=== PATIENT | female | born 1990 ===

== ENCOUNTER 2017-01-19 16:31 | Emergency (ER) | payer MEDICAID, OTHER ==
[2017-01-19 16:31] VITALS: BMI 32.7
[2017-01-19] MEDS ORDERED: Sodium Chloride 0.9% 1,000 ML IV ONE (17:12)
[2017-01-19 17:34] LABS: BASO # 0.1 K/uL (0.0-0.2); BASO % 1.3 % (0.0-2.0); EOS # 0.1 K/uL (0.0-0.7); EOS % 1.2 % (0.0-4.0); HEMATOCRIT 43.4 % (34.0-47.0); LYMPH # 1.8 K/uL (1.0-4.3); LYMPH % 37.7 % (20.0-40.0); MEAN CORPUSCULAR HEMOGLOBIN 31.2 pg (27.0-31.0); MEAN CORPUSCULAR HGB CONC 33.9 g/dL (33.0-37.0); MEAN PLATELET VOLUME 11.4 fL (7.2-11.7); MONO # 0.5 K/uL (0.0-0.8); MONO % 10.9 % (0.0-10.0); NRBC % 0.1 % (0.0-2.0); RED CELL DISTRIBUTION WIDTH 12.4 % (11.5-14.5)
--- NOTE | 2017-01-19 17:36 | C.PDOC ---
History Of Present Illness 26 yr old female presents to the ER with complaints of abdominal pain for the past 3 weeks, associated with vomiting and diarrhea. Patient denies fever, chills, chest pain, SOB, dysuria, hematuria, incontinence, weakness or numbness. 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 Constitutional: Negative for: Fever, Chills Cardiovascular: Negative for: Chest Pain Respiratory: Negative for: Shortness of Breath Gastrointestinal: Positive for: Vomiting, Abdominal Pain, Diarrhea Genitourinary: Negative for: Dysuria, Incontinence, Hematuria Neurological: Negative for: Weakness, Numbness Physical Exam - Physical Exam Appears: Well, Non-toxic, No Acute Distress Skin: Normal Color, Warm, Dry, No Rash Head: Atraumatic, Normacephalic Eye(s): bilateral: Normal Inspection, PERRL, EOMI Oral Mucosa: Moist Throat: Normal, No Erythema, No Exudate, No Drooling Neck: Normal, Normal ROM, Supple Chest: Symmetrical, No Tenderness Cardiovascular: Rhythm Regular, No Friction Rub, No Murmur Respiratory: Normal Breath Sounds, No Rales, No Rhonchi, No Wheezing Gastrointestinal/Abdominal: Normal Exam, Soft, No Tenderness, No Guarding, No Rebound, No Ascites Back: Normal Inspection, No CVA Tenderness Extremity: Normal ROM, No Swelling Neurological/Psych: Oriented x3, Normal Speech ED Course And Treatment - Laboratory Results Result Diagrams: 01/19/17 17:31 01/19/17 17:31 Lab Interpretation: Normal Urine POC: Negative O2 Sat by Pulse Oximetry: 98 Pulse Ox Interpretation: Normal Progress Note: Treated with IVF NSS and zofran IV. On re-evaluation abdomen soft non-tender Reassessment Condition: Improved Medical Decision Making Medical Decision Making: PLAN: * CBC * HCG * Urinalysis * Zofran IVP * Sodium Chloride IV Disposition Counseled Patient/Family Regarding: Studies Performed, Diagnosis, Need For Followup - Disposition Referrals: 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 - Scribe Statement The provider has reviewed the documentation as recorded by the Scribe Diane Dean All medical record entries made by the Scribe were at my direction and personally dictated by me. I have reviewed the chart and agree that the record accurately reflects my personal performance of the history, physical exam, medical decision making, and the department course for this patient. I have also personally directed, reviewed, and agree with the discharge instructions and disposition.
[2017-01-19 17:39] LABS: MEAN CELL VOLUME 91.9 fL (81.0-99.0); WHITE BLOOD COUNT 4.9 K/uL (4.8-10.8)
[2017-01-19 17:42] LABS: CHLORIDE 98 mmol/L (98-107); RBC URINE 4361 /hpf (0-3); URINE BACTERIA OCC (<OCC); URINE BILIRUBIN NEGATIVE (NEGATIVE); URINE BLOOD 2+ (NEGATIVE); URINE GLUCOSE (UA) NORMAL (Normal); URINE KETONE NEGATIVE (NEGATIVE); URINE LEUKOCYTE ESTERASE NEG Leu/uL (Negative); URINE PROTEIN 2+ mg/dL (NEGATIVE); URINE UROBILINOGEN NORMAL mg/dL (0.2-1.0); WBC URINE 5 /hpf (0-5)
[2017-01-19 17:43] LABS: POTASSIUM 5.1 mmol/L (3.6-5.2); SODIUM 140 mmol/L (132-148)
[2017-01-19 17:45] LABS: ALB/GLOB RATIO 1.2 (1.0-2.1); ALKALINE PHOSPHATASE 52 U/L (38-126); ALT/SGPT 28 U/L (9-52); AST/SGOT 30 U/L (14-36); BILIRUBIN,TOTAL 0.7 mg/dL (0.2-1.3); BLOOD UREA NITROGEN 11 mg/dL (7-17); CARBON DIOXIDE 29 mmol/L (22-30); GFR AFRICAN-AMERICAN > 60; TOTAL PROTEIN 8.3 g/dL (6.3-8.3)
[2017-01-19 17:46] LABS: CALCIUM 8.7 mg/dl (8.6-10.4); GLUCOSE,RANDOM 99 mg/dL (65-105)
[2017-01-19 17:49] LABS: URINE COLOR RED (YELLOW)
[2017-01-19 19:09] VITALS: BP 132/81; PULSE 77; RESP 18; TEMP 98; O2SAT 96
== END 2017-01-19 19:09 | disposition home or self-care (01) ==
LOC: C.ER 16:31
DX: R11.2 Nausea with vomiting, unspecified (principal); R19.7 Diarrhea, unspecified
CPT/HCPCS: 80053; 81001; 83690; 84703; 85025; 96374; 99285; J2405; J7040

== ENCOUNTER 2017-02-27 14:05 | Emergency (ER) | payer OTHER ==
[2017-02-27 14:05] VITALS: BMI 32.7
[2017-02-27 14:16] VITALS: O2SAT 100
--- NOTE | 2017-02-27 14:52 | C.PDOC ---
History Of Present Illness 26 year old patient presents to the ED complaining of lower abdominal pain and cramping with some vaginal spotting that began yesterday. She states the blood is not flowing, but she notes it when she goes to the bathroom. Patient states she has an irregular menstrual cycle. Her last menstrual cycle was 01/17/17. She did not have one this month so far. She took an at home test today which was positive. Patient has been once before, has one child, and no miscarriages. Patient denies fever, nausea, vomiting, diarrhea, back pain or urinary symptoms. Time Seen by Provider: 02/27/17 14:20 Chief Complaint (Nursing): Female Genitourinary History Per: Patient History/Exam Limitations: no limitations Onset/Duration Of Symptoms: Days (yesterday) Current Symptoms Are (Timing): Still Present Context: Other Severity: Mild Pain Scale Rating Of: 3 Location Of Pain/Discomfort: Suprapubic Radiation Of Pain To:: None Quality Of Discomfort: Cramping, "Pain" Associated Symptoms: Other (vaginal spotting) Exacerbating Factors: None Alleviating Factors: None Last Bowel Movement: Today Recent travel outside of the [place]: No Abnormal Vaginal Bleeding: Yes Last Menstral Period: 01/17/17 : 2 Para: 1 Miscarriage: 0 Past Medical History Reviewed: Historical Data, Nursing Documentation, Vital Signs Vital Signs: Last Vital Signs Temp 98.8 F 02/27/17 14:13 Pulse 79 02/27/17 14:13 Resp 20 02/27/17 14:13 BP 134/86 02/27/17 14:13 Pulse Ox 100 02/27/17 16:03 - [facility] Procedures LOW CERVICAL (07/15/14) 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 Constitutional: Negative for: Fever Gastrointestinal: Positive for: Abdominal Pain (lower). Negative for: Nausea, Vomiting, Diarrhea Genitourinary: Positive for: Vaginal Bleeding (spotting). Negative for: Dysuria Physical Exam - Physical Exam Appears: Non-toxic, No Acute Distress Skin: Warm, Dry Head: Atraumatic, Normacephalic Neck: Normal ROM, Supple Chest: Symmetrical Cardiovascular: Rhythm Regular Respiratory: Normal Breath Sounds, No Rales, No Rhonchi, No Wheezing Gastrointestinal/Abdominal: Soft, Tenderness (mild suprapubic), No Guarding, No Rebound Back: Normal Inspection, No CVA Tenderness Extremity: Normal ROM Neurological/Psych: Oriented x3 Gait: Steady ED Course And Treatment - Laboratory Results Result Diagrams: 02/27/17 15:04 02/27/17 15:04 Interpretation Of Abnormal: BHCG 4771.1 Urine POC: Positive O2 Sat by Pulse Oximetry: 100 (room air) Pulse Ox Interpretation: Normal - CT Scan/US Pelvic US Other Rad Studies (CT/US): Read By Radiologist (Eusebio Figueroa MD), Radiology Report Reviewed CT/US Interpretation: Pelvic ultrasound. History: . Vaginal bleeding and pain. Comparison: None available. Technique: Real-time sonography was performed through the pelvis utilizing transabdominal and transvaginal techniques. Findings: LMP of 01/17/2017. Gestational age by LMP of 5 weeks and 6 days. Uterus: 9.4 x 4.9 x 6.1 centimeters. Heterogeneous echotexture. Retroverted. Cervix measures 3.6 centimeters. Uterine fibroid lesion seen anteriorly measuring 2.4 x 1.8 x 1.9 centimeters. Hypoechoic foci within the uterus suggestive for intrauterine gestational sac measuring 0.9 centimeters, too small to adequately date. Yolk sac identified measuring 3.3 millimeters. No pole or heart rate identified. No free fluid in the pelvic cul-de- sac. Right ovary: 6.3 x 4.9 x 5.2 centimeters. Normal flow. Hypoechoic cyst measuring 5.1 x 3.8 x 4.5 centimeters. Cyst appears to contain a septation and or peripheral mural nodule. Left ovary: Only seen on transabdominal view. 2.3 x 1.4 x 2.2 centimeters. Normal flow. Impression: LMP of 01/17/2017. Gestational age by LMP of 5 weeks and 6 days. Suggestion of a hypoechoic foci seen within the uterus suggestive for an intrauterine , too small to adequately date. Intrauterine gestational sac and yolk sac identified. No pole or heart rate identified. This is likely related to an early intrauterine . Continued interval followup is recommended to exclude additional etiologies including possible missed . 2.4 centimeter fibroid lesion within the anterior uterus. 5.1 centimeter right ovarian cyst as described above. Limited 1st trimester ultrasound for viability purposes only. Continued interval followup with serial ultrasound, serial HCG levels, and gynecological consultation would be helpful if clinically indicated. Please note beta HCG level was not documented by the technologist. Clinical correlation. Reevaluation Time: 16:23 Reassessment Condition: Unchanged Medical Decision Making Medical Decision Making: Plan: * Labs * Pelvic US Disposition Counseled Patient/Family Regarding: Studies Performed, Diagnosis, Need For Followup - Disposition Referrals: [facility] [Outside] Disposition: HOME/ ROUTINE Disposition Time: 16:32 Condition: STABLE Instructions: Threatened Miscarriage (ED) Print Language: LUXEMBOURGISH - Clinical Impression Clinical Impression: Threatened in early - Scribe Statement The provider has reviewed the documentation as recorded by the Scribe Usha Vega Provider Attestation: All medical record entries made by the Scribe were at my direction and personally dictated by me. I have reviewed the chart and agree that the record accurately reflects my personal performance of the history, physical exam, medical decision making, and the department course for this patient. I have also personally directed, reviewed, and agree with the discharge instructions and disposition.
[2017-02-27 14:54] LABS: URINE BILIRUBIN NEGATIVE (NEGATIVE); URINE BLOOD 1+ (NEGATIVE); URINE COLOR Straw (YELLOW); URINE GLUCOSE (UA) NORMAL (Normal); URINE KETONE NEGATIVE (NEGATIVE); URINE LEUKOCYTE ESTERASE NEG Leu/uL (Negative); URINE PROTEIN NEGATIVE (NEGATIVE); URINE UROBILINOGEN NORMAL mg/dL (0.2-1.0); WBC URINE 1 /hpf (0-5)
[2017-02-27 15:15] LABS: BASO # 0.1 K/uL (0.0-0.2); BASO % 0.9 % (0.0-2.0); EOS # 0.1 K/uL (0.0-0.7); EOS % 2.3 % (0.0-4.0); HEMATOCRIT 44.3 % (34.0-47.0); LYMPH # 2.4 K/uL (1.0-4.3); LYMPH % 40.8 % (20.0-40.0); MEAN CORPUSCULAR HEMOGLOBIN 30.8 pg (27.0-31.0); MEAN CORPUSCULAR HGB CONC 33.1 g/dL (33.0-37.0); MEAN PLATELET VOLUME 11.6 fL (7.2-11.7); MONO # 0.4 K/uL (0.0-0.8); NRBC % 0.2 % (0.0-2.0); RED CELL DISTRIBUTION WIDTH 12.4 % (11.5-14.5); WHITE BLOOD COUNT 5.8 K/uL (4.8-10.8)
[2017-02-27 15:16] LABS: CHLORIDE 99 mmol/L (98-107); POTASSIUM 3.8 mmol/L (3.6-5.2); SODIUM 138 mmol/L (132-148)
[2017-02-27 15:18] LABS: ALB/GLOB RATIO 1.3 (1.0-2.1); ALKALINE PHOSPHATASE 55 U/L (38-126); AST/SGOT 26 U/L (14-36); BILIRUBIN,TOTAL 0.7 mg/dL (0.2-1.3); CARBON DIOXIDE 26 mmol/L (22-30); GFR AFRICAN-AMERICAN > 60; TOTAL PROTEIN 8.1 g/dL (6.3-8.3)
[2017-02-27 15:19] LABS: ALT/SGPT 32 U/L (9-52); BLOOD UREA NITROGEN 7 mg/dL (7-17); CALCIUM 8.8 mg/dl (8.6-10.4); GLUCOSE,RANDOM 90 mg/dL (65-105)
--- NOTE | 2017-02-27 15:58 | US ---
Pelvic ultrasound History: . Vaginal bleeding and pain. Comparison: None available. Technique: Real-time sonography was performed through the pelvis utilizing transabdominal and transvaginal techniques. Findings: LMP of 01/17/2017. Gestational age by LMP of 5 weeks and 6 days. Uterus: 9.4 x 4.9 x 6.1 centimeters. Heterogeneous echotexture. Retroverted. Cervix measures 3.6 centimeters. Uterine fibroid lesion seen anteriorly measuring 2.4 x 1.8 x 1.9 centimeters. Hypoechoic foci within the uterus suggestive for intrauterine gestational sac measuring 0.9 centimeters, too small to adequately date. Yolk sac identified measuring 3.3 millimeters. No pole or heart rate identified. No free fluid in the pelvic cul-de-sac. Right ovary: 6.3 x 4.9 x 5.2 centimeters. Normal flow. Hypoechoic cyst measuring 5.1 x 3.8 x 4.5 centimeters. Cyst appears to contain a septation and or peripheral mural nodule. Left ovary: Only seen on transabdominal view. 2.3 x 1.4 x 2.2 centimeters. Normal flow. Impression: LMP of 01/17/2017. Gestational age by LMP of 5 weeks and 6 days. Suggestion of a hypoechoic foci seen within the uterus suggestive for an intrauterine , too small to adequately date. Intrauterine gestational sac and yolk sac identified. No pole or heart rate identified. This is likely related to an early intrauterine . Continued interval followup is recommended to exclude additional etiologies including possible missed . 2.4 centimeter fibroid lesion within the anterior uterus. 5.1 centimeter right ovarian cyst as described above. Limited 1st trimester ultrasound for viability purposes only. Continued interval followup with serial ultrasound, serial HCG levels, and gynecological consultation would be helpful if clinically indicated. Please note beta HCG level was not documented by the technologist. Clinical correlation.
[2017-02-27 17:10] VITALS: BP 128/70; PULSE 90; RESP 18; TEMP 97.6
== END 2017-02-27 17:10 | disposition home or self-care (01) ==
LOC: C.ER 14:05
DX: O20.0 Threatened abortion (principal); Z3A.00 Weeks of gestation of pregnancy not specified

== ENCOUNTER 2017-03-29 09:48 | Emergency (ER) | payer OTHER ==
[2017-03-29 09:48] VITALS: BMI 32.7
[2017-03-29 09:56] VITALS: BP 125/82; PULSE 70; RESP 20; TEMP 98.7; O2SAT 99
--- NOTE | 2017-03-29 11:03 | C.PDOC ---
History Of Present Illness 26 year old patient presents to the ED complaining of right eye irritation and redness since yesterday. Patient denies any discharge, vision change, foreign body sensation, wearing contact lens, or fever. Time Seen by Provider: 03/29/17 10:10 Chief Complaint (Nursing): Eye Problem History Per: Patient History/Exam Limitations: no limitations Onset/Duration Of Symptoms: Days (yesterday) Current Symptoms Are (Timing): Still Present Injury To Eye?: No Severity: Mild Pain Scale Rating Of: 3 Quality: Other (irritation) Associated Symptoms: Other (irritation, redness) Recent travel outside of the [place]: No Past Medical History Reviewed: Historical Data, Nursing Documentation, Vital Signs Vital Signs: Last Vital Signs Temp 98.7 F 03/29/17 09:55 Pulse 70 03/29/17 09:55 Resp 20 03/29/17 09:55 BP 125/82 03/29/17 09:55 Pulse Ox 99 03/29/17 13:16 - [facility] Procedures LOW CERVICAL (07/15/14) 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 Constitutional: Negative for: Fever Eyes: Positive for: Redness (right). Negative for: Vision Change, Other ( discharge, foreign body sensation) Physical Exam - Physical Exam Appears: Non-toxic, No Acute Distress Skin: Warm, Dry Head: Atraumatic, Normacephalic Eye(s): bilateral: Normal Inspection, PERRL, EOMI, right: Other (sclera: (+) injection (-)foreign body (-)discharge) Ear(s): Bilateral: Normal Nose: Normal Oral Mucosa: Moist Throat: Normal Neck: Normal ROM, Supple Chest: Symmetrical Cardiovascular: Rhythm Regular Respiratory: Normal Breath Sounds, No Rales, No Rhonchi, No Wheezing Extremity: Bilateral: Atraumatic Neurological/Psych: Oriented x3 Gait: Steady ED Course And Treatment O2 Sat by Pulse Oximetry: 99 (room air) Pulse Ox Interpretation: Normal Disposition - Disposition Referrals: [facility] Rejose, [Non-Staff] - Disposition: HOME/ ROUTINE Disposition Time: 10:15 Condition: GOOD Additional Instructions: Thank you for letting us take care of you today. Your provider was Dr. Whitman. You were treated for an eye infection. The emergency medical care you received today was directed at your acute symptoms. If you were prescribed any medication, please fill it and take as directed. It may take several days for your symptoms to resolve. Return to the Emergency Department if your symptoms worsen, do not improve, or if you have any other problems. Please contact your doctor or call one of the physicians/clinics you have been referred to that are listed on the Patient Visit Information form that is included in your discharge packet. Bring any paperwork you were given at discharge with you along with any medications you are taking to your follow up visit. Our treatment cannot replace ongoing medical care by a primary care provider (PCP) outside of the emergency department. Thank you for allowing the [facility] team to be part of your care today. Follow up with your doctor in 2-3 days for re-evaluation. Prescriptions: Polymyxin/Trimethoprim Sulfate [Polytrim Ophth Soln] 1 drop OU Q6 #1 bottle Instructions: Conjunctivitis (ED) Forms: Work Excuse - Clinical Impression Clinical Impression: Conjunctivitis - Scribe Statement The provider has reviewed the documentation as recorded by the Yueibrobert Vega Provider Attestation: All medical record entries made by the Yueibrobert were at my direction and personally dictated by me. I have reviewed the chart and agree that the record accurately reflects my personal performance of the history, physical exam, medical decision making, and the department course for this patient. I have also personally directed, reviewed, and agree with the discharge instructions and disposition.
== END 2017-03-29 10:43 | disposition home or self-care (01) ==
LOC: C.ER 09:48
DX: H10.9 Unspecified conjunctivitis (principal)

== ENCOUNTER 2017-03-31 21:09 | Emergency (ER) | payer OTHER ==
[2017-03-31 21:09] VITALS: BMI 32.7
[2017-03-31 21:49] VITALS: BP 131/81; PULSE 85; RESP 18; TEMP 98.5; O2SAT 100
--- NOTE | 2017-03-31 21:49 | C.PDOC ---
History Of Present Illness 26 yo female w/o significant PMHx come in for re-evaluation of Right eye apin and redness with yellow discharges gradually developed for past 4 days. Pt admits, was seen here in ED 2 days ago when was given Rx: Polymixin with very minimal improvement. Pt admits, (+) sick contact " with pink eye for 1 week too ". Pt also request " letter for work, after was seen here 2 days ago and was unable to go back to work". Pt denies significant PMHx, denies fever, chills, contact or glasses use, denies FB sensation, known trauma or injury, denies blurry vision, pain on movement, double vision, floaters or any other active complaints. Ambulate to ED for evaluation, not in any apparent distress. 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 Constitutional: Negative for: Fever, Chills Eyes: Positive for: Conjunctivae Inflammation, Redness. Negative for: Vision Change, Eyelid Inflammation ENT: Negative for: Ear Discharge, Nose Discharge Cardiovascular: Negative for: Chest Pain Respiratory: Negative for: Cough Musculoskeletal: Negative for: Neck Pain Skin: Negative for: Rash Neurological: Negative for: Weakness, Numbness, Altered Mental Status, Headache , Dizziness Physical Exam - Physical Exam Appears: Well, Non-toxic, No Acute Distress Skin: Normal Color, Warm, No Rash Head: Normacephalic Eye(s): bilateral: PERRL, EOMI (no pain or limitation on extraocular movement B/ L), right: Other (diffuse conjunctival injection with scant yellow discharges. NO periorbital edema or erythema. NO corneal FB.) Ear(s): Bilateral: Normal Nose: No Flaring, No Discharge, No Deformity Oral Mucosa: Moist Tongue: Normal Appearing Lips: Normal Appearing Throat: Erythema, No Exudate, No Drooling Neck: Supple Lymphatic: No Adenopathy (cervical) Extremity: No Pedal Edema Neurological/Psych: Oriented x3, Normal Speech, Normal Motor, Normal Sensation, Normal Reflexes ED Course And Treatment O2 Sat by Pulse Oximetry: 100 Progress Note: On re-eavluation, pt is afebrile, hemodynamicaly stable. non- toxic. Head: AT/NC. Right eye: exam c/w conjunctival injection r/o acute bacterial conjuctivitis . NO pain or limitation on extraocula movement. No periorbital cellulitis. VA: R20/30, L20/30 B/L 20/30. ENT: no acute findings. neck: (-) meningeal sign. Neurologicaly intact. Pt was advised on course of ds. ref. to F/u with Opht in 1-2 days for re-eavl. return if ny worsening or new changes. Disposition Counseled Patient/Family Regarding: Diagnosis, Need For Followup, Rx Given - Disposition Referrals: Lemuel Johnston MD [Staff Provider] - Disposition: HOME/ ROUTINE Disposition Time: 21:56 Condition: STABLE Additional Instructions: Eye patch Change the ophthalmic drops to new medication prescribed today Strict hygiene Follow up with Ophthalmology in 1-2 days for re-evaluation. Return to ED if any worsening or new changes. Prescriptions: Neomycin/Polymyxin/Dexamethaso [Dexamethasone/Neomycin/Polymyxin 5 Ml] 2 drop RIGHTEYE Q4 #1 bottle Instructions: Conjunctivitis (ED) Forms: Work Excuse - Clinical Impression Clinical Impression: Conjunctivitis
[2017-03-31] MEDS ORDERED: Tobramycin/Dexamethasone OPHT OINT OD STA (21:55)
[2017-03-31] MEDS ORDERED: Tobramycin 0.3% OPH OINT ONE (22:02)
== END 2017-03-31 22:00 | disposition home or self-care (01) ==
LOC: C.ER 21:09
DX: H10.9 Unspecified conjunctivitis (principal)

== ENCOUNTER 2017-06-22 19:06 | Emergency (ER) | payer OTHER ==
[2017-06-22 19:06] VITALS: BMI 32.7
[2017-06-22 21:15] VITALS: BP 146/85; RESP 18; O2SAT 100
[2017-06-22 21:30] LABS: RBC URINE 1 /hpf (0-3); URINE BILIRUBIN NEGATIVE (NEGATIVE); URINE BLOOD 1+ (NEGATIVE); URINE COLOR Straw (YELLOW); URINE GLUCOSE (UA) NORMAL (Normal); URINE KETONE NEGATIVE (NEGATIVE); URINE LEUKOCYTE ESTERASE NEG Leu/uL (Negative); URINE PROTEIN NEGATIVE (NEGATIVE); URINE UROBILINOGEN NORMAL mg/dL (0.2-1.0); WBC URINE < 1 /hpf (0-5)
[2017-06-22 21:53] LABS: BASO # 0.1 K/uL (0.0-0.2); BASO % 1.2 % (0.0-2.0); EOS # 0.2 K/uL (0.0-0.7); EOS % 2.5 % (0.0-4.0); HEMATOCRIT 41.4 % (34.0-47.0); LYMPH # 2.7 K/uL (1.0-4.3); LYMPH % 42.1 % (20.0-40.0); MEAN CELL VOLUME 92.6 fL (81.0-99.0); MEAN CORPUSCULAR HEMOGLOBIN 32.2 pg (27.0-31.0); MEAN CORPUSCULAR HGB CONC 34.8 g/dL (33.0-37.0); MEAN PLATELET VOLUME 10.7 fL (7.2-11.7); MONO # 0.7 K/uL (0.0-0.8); MONO % 10.4 % (0.0-10.0); NRBC % 0.1 % (0.0-2.0); RED CELL DISTRIBUTION WIDTH 12.6 % (11.5-14.5); WHITE BLOOD COUNT 6.4 K/uL (4.8-10.8)
[2017-06-22 21:56] LABS: CHLORIDE 102 mmol/L (98-107); POTASSIUM 4.4 mmol/L (3.6-5.2); SODIUM 139 mmol/L (132-148)
[2017-06-22 21:59] LABS: ALB/GLOB RATIO 1.3 (1.0-2.1); ALKALINE PHOSPHATASE 42 U/L (38-126); ALT/SGPT 33 U/L (9-52); AST/SGOT 18 U/L (14-36); BILIRUBIN,TOTAL 0.6 mg/dL (0.2-1.3); BLOOD UREA NITROGEN 9 mg/dL (7-17); CARBON DIOXIDE 23 mmol/L (22-30); GFR AFRICAN-AMERICAN > 60; GLUCOSE,RANDOM 73 mg/dL (65-105)
--- NOTE | 2017-06-22 23:13 | US ---
EXAM: US First Trimester, Transabdominal CLINICAL HISTORY: 26 years old, female; Pain; complicated by abdominal or pelvic pain; Lower; First trimester; Gestational age or lmp: 8-16-17; ; Additional info: Vaginal bleeding TECHNIQUE: Real-time transabdominal obstetrical ultrasound of the maternal pelvis and a first trimester with image documentation. COMPARISON: No relevant prior studies available. FINDINGS: Gestation: Single live intrauterine gestation. heart rate of 134 beats per minute. Winger-rump length of 0.74 cm, correlating with gestational age of 6 weeks 4 days. Uterus/cervix: No subchorionic hemorrhage. No cervical dilatation or effacement. 2.6 x 3.1 x 2.7 cm anterior uterine mass. Ovaries: RIGHT ovary: Not visualized. LEFT ovary: 3.9 x 4.7 x 4.0 cm anechoic lesion. No adnexal masses. Free fluid: No significant free fluid. IMPRESSION: 1. Single live intrauterine gestation. 2. Probable fibroid. 3. LEFT ovarian cyst.
--- NOTE | 2017-06-22 23:20 | C.PDOC ---
History Of Present Illness 26 year old female who presents to the ER with a complaint of lower abdominal pain and vaginal spotting that began 2 days ago. Denies fever, chills, nausea, or vomiting. Her last menses was 05/25. Time Seen by Provider: 06/22/17 21:31 Chief Complaint (Nursing): Abdominal Pain History Per: Patient History/Exam Limitations: no limitations Onset/Duration Of Symptoms: Days Current Symptoms Are (Timing): Still Present Location Of Pain/Discomfort: Other (Lower) Radiation Of Pain To:: None Quality Of Discomfort: Unable To Describe Associated Symptoms: Other (Vaginal spotting). denies: Fever, Chills, Nausea, Vomiting Exacerbating Factors: None Alleviating Factors: None Recent travel outside of the [place]: No Past Medical History Reviewed: Historical Data, Nursing Documentation, Vital Signs Vital Signs: Last Vital Signs Temp 98.9 F 06/22/17 21:03 Pulse 72 06/22/17 21:03 Resp 18 06/22/17 21:03 BP 146/85 06/22/17 21:03 Pulse Ox 100 06/22/17 23:31 - Medical History PMH: No Chronic Diseases - [facility] Procedures LOW CERVICAL (07/15/14) SURG INDUCT LABOR NEC (07/15/14) Family History: States: Unknown Family Hx - Social History Hx Tobacco Use: No Hx Alcohol Use: No Hx Substance Use: No - Immunization History Hx Tetanus Toxoid Vaccination: No Hx Influenza Vaccination: No Hx Pneumococcal Vaccination: No Review Of Systems Constitutional: Negative for: Fever, Chills Gastrointestinal: Negative for: Nausea, Vomiting Genitourinary: Positive for: Other (Vaginal spotting) Physical Exam - Physical Exam Appears: Non-toxic, No Acute Distress Skin: Normal Color, Warm, Dry Head: Atraumatic, Normacephalic Oral Mucosa: Moist Chest: Symmetrical, No Tenderness Cardiovascular: Rhythm Regular, No Murmur Respiratory: Normal Breath Sounds, No Rales, No Rhonchi, No Wheezing Gastrointestinal/Abdominal: Soft, No Tenderness Neurological/Psych: Oriented x3, Normal Speech, Normal Cognition ED Course And Treatment - Laboratory Results Result Diagrams: 06/22/17 21:43 06/22/17 21:43 Lab Interpretation: Abnormal ([facility], [place] [address].00) Urine POC: Positive O2 Sat by Pulse Oximetry: 100 (Room air) Pulse Ox Interpretation: Normal - CT Scan/US Transabd US Other Rad Studies (CT/US): Read By Radiologist, Radiology Report Reviewed CT/US Interpretation: EXAM: US First Trimester, Transabdominal. CLINICAL HISTORY: 26 years old, female; Pain; complicated by abdominal or pelvic pain; Lower; First. trimester; Gestational age or lmp: 8-16 -17; ; Additional info: Vaginal bleeding. TECHNIQUE: Real-time transabdominal obstetrical ultrasound of the maternal pelvis and a first trimester. with image documentation. COMPARISON: No relevant prior studies available. FINDINGS: Gestation: Single live intrauterine gestation. heart rate of 134 beats per minute. [place]-rump. length of 0.74 cm, correlating with gestational age of 6 weeks 4 days. Uterus/cervix: No subchorionic hemorrhage. No cervical dilatation or effacement. 2.6 x 3.1 x 2.7 cm. anterior uterine mass. Ovaries: RIGHT ovary: Not visualized. LEFT ovary: 3.9 x 4.7 x 4.0 cm anechoic lesion. No adnexal. masses. Free fluid: No significant free fluid. IMPRESSION: 1. Single live intrauterine gestation. 2. Probable fibroid. 3. LEFT ovarian cyst. Progress Note: Blood work, urinalysis, and transabd US ordered. Reevaluation Time: 23:50 Reassessment Condition: Unchanged Disposition Counseled Patient/Family Regarding: Studies Performed, Diagnosis, Need For Followup - Disposition Referrals: [facility] [Outside] Disposition: HOME/ ROUTINE Disposition Time: 23:51 Condition: IMPROVED Instructions: (ED), Threatened Miscarriage (ED) Forms: [employer] (Latvian) Print Language: MALDIVIAN - Clinical Impression Clinical Impression: Threatened in early - Scribe Statement The provider has reviewed the documentation as recorded by the Scribrobert Willoughby All medical record entries made by the Scribe were at my direction and personally dictated by me. I have reviewed the chart and agree that the record accurately reflects my personal performance of the history, physical exam, medical decision making, and the department course for this patient. I have also personally directed, reviewed, and agree with the discharge instructions and disposition.
[2017-06-22 23:58] VITALS: PULSE 78; TEMP 97.8
== END 2017-06-22 23:58 | disposition home or self-care (01) ==
LOC: C.ER 19:06
DX: O20.0 Threatened abortion (principal); Z3A.01 Less than 8 weeks gestation of pregnancy

== ENCOUNTER 2017-07-06 19:14 | Emergency (ER) | payer OTHER ==
[2017-07-06 19:14] VITALS: BMI 32.7
[2017-07-06 19:24] VITALS: RESP 20; O2SAT 100
[2017-07-06 20:23] LABS: RBC URINE 8 /hpf (0-3); URINE BILIRUBIN NEGATIVE (NEGATIVE); URINE BLOOD 2+ (NEGATIVE); URINE COLOR Yellow (YELLOW); URINE GLUCOSE (UA) NORMAL (Normal); URINE KETONE NEGATIVE (NEGATIVE); URINE LEUKOCYTE ESTERASE NEG Leu/uL (Negative); URINE PROTEIN NEGATIVE (NEGATIVE); URINE UROBILINOGEN NORMAL mg/dL (0.2-1.0); WBC URINE < 1 /hpf (0-5)
[2017-07-06 20:30] LABS: BASO # 0.1 K/uL (0.0-0.2); BASO % 1.3 % (0.0-2.0); EOS # 0.1 K/uL (0.0-0.7); EOS % 2.1 % (0.0-4.0); HEMATOCRIT 39.6 % (34.0-47.0); LYMPH # 2.8 K/uL (1.0-4.3); LYMPH % 46.7 % (20.0-40.0); MEAN CELL VOLUME 92.2 fL (81.0-99.0); MEAN CORPUSCULAR HEMOGLOBIN 31.6 pg (27.0-31.0); MEAN CORPUSCULAR HGB CONC 34.3 g/dL (33.0-37.0); MEAN PLATELET VOLUME 10.8 fL (7.2-11.7); MONO # 0.6 K/uL (0.0-0.8); MONO % 10.7 % (0.0-10.0); NRBC % 0.1 % (0.0-2.0); RED CELL DISTRIBUTION WIDTH 12.4 % (11.5-14.5)
[2017-07-06 20:39] LABS: CHLORIDE 99 mmol/L (98-107); POTASSIUM 4.3 mmol/L (3.6-5.2); SODIUM 142 mmol/L (132-148)
[2017-07-06 20:41] LABS: BILIRUBIN,TOTAL 0.4 mg/dL (0.2-1.3); GFR AFRICAN-AMERICAN > 60
[2017-07-06 20:42] LABS: ALB/GLOB RATIO 1.3 (1.0-2.1); ALKALINE PHOSPHATASE 46 U/L (38-126); ALT/SGPT 28 U/L (9-52); AST/SGOT 19 U/L (14-36); BLOOD UREA NITROGEN 11 mg/dL (7-17); CARBON DIOXIDE 25 mmol/L (22-30); GLUCOSE,RANDOM 86 mg/dL (65-105); TOTAL PROTEIN 7.7 g/dL (6.3-8.3)
[2017-07-06 20:43] LABS: CALCIUM 8.8 mg/dl (8.6-10.4)
--- NOTE | 2017-07-06 20:59 | C.PDOC ---
History Of Present Illness Patient currently presents to ed with complaints of vaginal bleeding and intermittent lower abdomen cramping pain 05/19 since yesterday. Patient states she took Tylenol for pain with some relief. Patient reports she has used 10 tampons and denies fever, chills, liquid vaginal discharge or any other complaints at this time. Time Seen by Provider: 07/06/17 20:48 Chief Complaint (Nursing): Female Genitourinary History Per: Patient History/Exam Limitations: no limitations Onset/Duration Of Symptoms: Days Current Symptoms Are (Timing): Still Present Severity: Mild Pain Scale Rating Of: 2 Quality Of Discomfort: Cramping Associated Symptoms: denies: Fever Recent travel outside of the [place]: No Abnormal Vaginal Bleeding: Yes : 2 Para: 1 Past Medical History Reviewed: Historical Data, Nursing Documentation, Vital Signs Vital Signs: Last Vital Signs Temp 98.5 F 07/06/17 19:22 Pulse 65 07/06/17 19:22 Resp 20 07/06/17 19:22 BP 117/62 07/06/17 19:22 Pulse Ox 100 07/06/17 22:29 - Medical History PMH: No Chronic Diseases Surgical History: No Surg Hx - [facility] Procedures LOW CERVICAL (07/15/14) SURG INDUCT LABOR NEC (07/15/14) Family History: States: No Known Family Hx - Social History Hx Tobacco Use: No Hx Alcohol Use: No Hx Substance Use: No - Immunization History Hx Tetanus Toxoid Vaccination: Yes Hx Influenza Vaccination: No Hx Pneumococcal Vaccination: No Review Of Systems Constitutional: Negative for: Fever, Chills Gastrointestinal: Positive for: Abdominal Pain. Negative for: Nausea, Vomiting Genitourinary: Positive for: Vaginal Bleeding. Negative for: Vaginal Discharge Musculoskeletal: Negative for: Back Pain Skin: Negative for: Rash Physical Exam - Physical Exam Appears: Non-toxic, No Acute Distress Skin: Warm, Dry, No Rash Head: Normacephalic Oral Mucosa: Moist Neck: Supple Chest: Symmetrical Cardiovascular: Rhythm Regular, No Murmur Respiratory: No Rales, No Rhonchi, No Wheezing Gastrointestinal/Abdominal: Soft, Tenderness (Suprapubic), No Guarding, No Rebound Back: No CVA Tenderness Extremity: Capillary Refill (<2 seconds) Extremity: Bilateral: Atraumatic Neurological/Psych: Oriented x3 ED Course And Treatment - Laboratory Results Result Diagrams: 07/06/17 20:24 07/06/17 20:24 O2 Sat by Pulse Oximetry: 100 (RA) Pulse Ox Interpretation: Normal Reevaluation Time: 22:28 Disposition Counseled Patient/Family Regarding: Studies Performed, Diagnosis, Need For Followup - Disposition Referrals: [facility] [Outside] [facility] [Outside] Disposition: HOME/ ROUTINE Disposition Time: 22:28 Condition: FAIR Instructions: Spontaneous Miscarriage (ED) Forms: [employer] (Northern Irish) Print Language: JAPANESE - Clinical Impression Clinical Impression: Spontaneous miscarriage - Scribe Statement The provider has reviewed the documentation as recorded by the Yueibrobert Clark All medical record entries made by the Yueibrobert were at my direction and personally dictated by me. I have reviewed the chart and agree that the record accurately reflects my personal performance of the history, physical exam, medical decision making, and the department course for this patient. I have also personally directed, reviewed, and agree with the discharge instructions and disposition.
[2017-07-06 21:42] LABS: INR 1.2
--- NOTE | 2017-07-06 22:21 | US ---
EXAM: US First Trimester, Transabdominal CLINICAL HISTORY: 26 years old, female; Signs and symptoms; Other: Vag bleed; Prior surgery; Surgery date: 6+ months; Surgery type: ; Additional info: , vag bleed TECHNIQUE: Real-time transabdominal obstetrical ultrasound of the maternal pelvis and a first trimester with image documentation. COMPARISON: US - 1ST TRIMESTER SINGLE 06/22/2017 10:23:26 PM FINDINGS: Gestation: No intrauterine gestational sac. Uterus/cervix: 2.0 x 1.1 x 1.8 cm uterine mass. Endometrium: 0.8 cm in thickness, mildly heterogeneous without vascularity. Closed cervix. Ovaries: RIGHT ovary: Normal. LEFT ovary: 1.6 x 1.6 x 1.1 cm anechoic lesion. No adnexal masses. Free fluid: No significant free fluid. IMPRESSION: 1. No intrauterine gestation. Findings compatible with spontaneous . 2. LEFT ovarian cyst. 3. Probable fibroid. EXAM: US , Transvaginal CLINICAL HISTORY: 26 years old, female; Signs and symptoms; Other: Vag bleed; Prior surgery; Surgery date: 6+ months; Surgery type: ; Additional info: , vag bleed TECHNIQUE: Real-time transvaginal obstetrical ultrasound of the maternal pelvis and a first trimester with image documentation. Transvaginal imaging was used for better evaluation of the fetus and adnexa. COMPARISON: US - 1ST TRIMESTER SINGLE 06/22/2017 10:23:26 PM FINDINGS: Gestation: No intrauterine gestational sac. Uterus/cervix: 2.0 x 1.1 x 1.8 cm uterine mass. Endometrium: 0.8 cm in thickness, mildly heterogeneous without vascularity. Closed cervix. Ovaries: RIGHT ovary: Normal. LEFT ovary: 1.6 x 1.6 x 1.1 cm anechoic lesion. No adnexal masses. Free fluid: No significant free fluid.
[2017-07-06 22:47] VITALS: BP 119/79; PULSE 59; TEMP 98.9
== END 2017-07-06 22:46 | disposition home or self-care (01) ==
LOC: C.ER 19:14
DX: O03.9 Complete or unspecified spontaneous abortion without complication (principal)

== ENCOUNTER 2017-10-22 12:55 | Emergency (ER) | payer OTHER ==
[2017-10-22 12:55] VITALS: BMI 32.7
[2017-10-22 13:08] VITALS: RESP 18; O2SAT 100
--- NOTE | 2017-10-22 14:04 | C.PDOC ---
History Of Present Illness 26 y/o female presents to the ER complaining of fever, sore throat, and body aches which have been present for the 3 days. Patient notes that she took Tylenol today. Patient denies any difficulty breathing or swallowing. Denies chest pain, sob, abdominal pain or symtpoms. Time Seen by Provider: 10/22/17 13:31 Chief Complaint (Nursing): Flu-like Symptoms History Per: Patient History/Exam Limitations: no limitations Onset/Duration Of Symptoms: Days Current Symptoms Are (Timing): Still Present Associated Symptoms: Fever Past Medical History Reviewed: Historical Data, Nursing Documentation, Vital Signs Vital Signs: Last Vital Signs Temp 102.5 F H 10/22/17 14:10 Pulse 120 H 10/22/17 14:10 Resp 18 10/22/17 14:10 BP 128/78 10/22/17 14:10 Pulse Ox 100 10/22/17 15:46 - Medical History PMH: No Chronic Diseases Surgical History: No Surg Hx - [facility] Procedures LOW CERVICAL (07/15/14) SURG INDUCT LABOR NEC (07/15/14) Family History: States: No Known Family Hx - Social History Hx Tobacco Use: No Hx Alcohol Use: No Hx Substance Use: No - Immunization History Hx Tetanus Toxoid Vaccination: No Hx Influenza Vaccination: No Hx Pneumococcal Vaccination: No Review Of Systems Except As Marked, All Systems Reviewed And Found Negative. Constitutional: Positive for: Fever, Malaise. Negative for: Chills ENT: Positive for: Throat Pain Gastrointestinal: Negative for: Nausea, Vomiting, Diarrhea Physical Exam - Physical Exam Appears: Non-toxic, No Acute Distress Skin: Normal Color, Warm Head: Atraumatic, Normacephalic Eye(s): bilateral: Normal Inspection, EOMI Ear(s): Bilateral: Normal Nose: Normal Oral Mucosa: Moist Throat: Erythema, Exudate Neck: Normal ROM, No Midline Cervical Tenderness, No Paracervical Tenderness, Supple Lymphatic: Adenopathy Chest: Symmetrical Cardiovascular: Rhythm Regular Respiratory: Normal Breath Sounds, No Accessory Muscle Use Gastrointestinal/Abdominal: Normal Exam, Soft, No Tenderness Extremity: Normal ROM Neurological/Psych: Oriented x3, Normal Speech, Normal Cognition ED Course And Treatment O2 Sat by Pulse Oximetry: 100 (RA) Pulse Ox Interpretation: Normal Progress Note: Plan: --Flu Swab. --Amoxicillin. --Motrin. --Tylenol. Discussed signs of concern and instructed to follow up with PMD in 1-2 days. Disposition - Disposition Disposition: HOME/ ROUTINE Disposition Time: 14:02 Condition: STABLE Additional Instructions: Vaya a quarles mdico o la clnica en 2-5 singh sin falta, para mas evaluacin. Grayson los medicamentos justina indicado. Volver a la monica de emergencia en cualquier momento si los sntomas persisten o empeoran. Prescriptions: Amoxicillin 875 mg PO BID #14 tablet Ibuprofen [Motrin] 600 mg PO Q6 PRN #20 tab PRN Reason: Pain, Mild (1-3) Mag&Al/Simet/Diphen/Lido [First Magic Mouthwash] 5 ml MM Q6 #1 kit Instructions: Pharyngitis (ED) Forms: [employer] (Togolese) Print Language: KYRGYZ - Clinical Impression Clinical Impression: Pharyngitis - PA / SHOE TURNER / Resident Statement MD/DO has reviewed & agrees with the documentation as recorded. - Scribe Statement The provider has reviewed the documentation as recorded by the Scribe Mook Moreno Provider Attestation All medical record entries made by the Scribe were at my direction and personally dictated by me. I have reviewed the chart and agree that the record accurately reflects my personal performance of the history, physical exam, medical decision making, and the department course for this patient. I have also personally directed, reviewed, and agree with the discharge instructions and disposition.
--- NOTE | 2017-10-22 14:05 | C.PDOC ---
History Of Present Illness 26 y/o female presents to the ER complaining of fever, sore throat, and body aches which have been present for the past 2 days. Patient notes that she took Tylenol today. Patient denies any difficulty breathing and swallowing. Time Seen by Provider: 10/22/17 13:31 Chief Complaint (Nursing): Flu-like Symptoms History Per: Patient History/Exam Limitations: no limitations Onset/Duration Of Symptoms: Days Current Symptoms Are (Timing): Still Present Associated Symptoms: Fever, Sore Throat Past Medical History Reviewed: Historical Data, Nursing Documentation, Vital Signs Vital Signs: Last Vital Signs Temp 100.1 F H 10/22/17 13:06 Pulse 112 H 10/22/17 13:06 Resp 18 10/22/17 13:06 BP 130/87 10/22/17 13:06 Pulse Ox 100 10/22/17 13:06 - Medical History PMH: No Chronic Diseases Surgical History: No Surg Hx - [facility] Procedures LOW CERVICAL (07/15/14) SURG INDUCT LABOR NEC (07/15/14) Family History: States: No Known Family Hx - Social History Hx Tobacco Use: No Hx Alcohol Use: No Hx Substance Use: No - Immunization History Hx Tetanus Toxoid Vaccination: No Hx Influenza Vaccination: No Hx Pneumococcal Vaccination: No Review Of Systems Except As Marked, All Systems Reviewed And Found Negative. Constitutional: Positive for: Fever, Malaise. Negative for: Chills ENT: Positive for: Throat Pain Gastrointestinal: Negative for: Nausea, Vomiting, Diarrhea Physical Exam - Physical Exam Appears: Non-toxic, No Acute Distress Skin: Normal Color, Warm Head: Atraumatic, Normacephalic Eye(s): bilateral: Normal Inspection, PERRL Ear(s): Bilateral: Normal Nose: Normal Oral Mucosa: Moist Throat: Erythema, Exudate Chest: Symmetrical Cardiovascular: Rhythm Regular Respiratory: Normal Breath Sounds, No Accessory Muscle Use Gastrointestinal/Abdominal: Normal Exam, Soft, No Tenderness Extremity: Normal ROM Neurological/Psych: Oriented x3, Normal Speech, Normal Cognition, Normal Motor, Normal Sensation ED Course And Treatment O2 Sat by Pulse Oximetry: 100 (RA) Pulse Ox Interpretation: Normal Medical Decision Making Medical Decision Making: Plan: --Flu Swab --Amoxicillin --Motrin --Tylenol Disposition - Disposition - PA / PANEL COVERER / Resident Statement /DO has reviewed & agrees with the documentation as recorded. - Scribe Statement The provider has reviewed the documentation as recorded by the Scribe Mook Moreno Provider Attestation All medical record entries made by the Yueibe were at my direction and personally dictated by me. I have reviewed the chart and agree that the record accurately reflects my personal performance of the history, physical exam, medical decision making, and the department course for this patient. I have also personally directed, reviewed, and agree with the discharge instructions and disposition.
[2017-10-22 14:18] VITALS: BP 128/78; PULSE 120; TEMP 102.5
== END 2017-10-22 14:22 | disposition home or self-care (01) ==
LOC: C.ER 12:55
DX: J02.9 Acute pharyngitis, unspecified (principal)